=== PATIENT | female | born 1985 | race Caucasian/White ===

== ENCOUNTER 2025-01-14 14:08 | Emergency (ER) | payer SELFPAY ==
--- OUTSIDE RECORDS SUMMARY | 2025-01-14 14:17 | XMS_ITS | Continuity of Care Document ---
Author Organization [facility] Address [address] [place] [address] Phone Care Team Providers Care Supervisor Shuttle Fitting Name Role Phone CONV, [facility] Unavailable Unavailable Advance Directives Directive Yes / No Effective Date File Name No Information Encounters Encounter Description Practice Location Reason(s) For Visit Diagnoses Date Provider Providers Copied on Encounter [facility] /[facility], [address] [place] [address], [facility], tel:[phone] Z [facility] CONV No Information CONV [facility]. [address] [place] [address], [facility], . Family History Family Member Type Diagnosis Age At Onset No Information Immunizations Vaccine Date Status Comments HEP B VACCINE PED/ADOL administered Note: [place] ; Source: New Immunization Record HEP B VACCINE PED/ADOL administered Note: [place] ; Source: New Immunization Record HEP B VACCINE PED/ADOL administered [facility] e: New Immunization Record Payers Payer name Insurance type Covered democrat ID Authoriza tion(s) No Information Social History Type Description Quantity Date Captured Comments Sex Female Smoking Status No Information Chief Complaint And Reason For Visit No Information History Of Present Illness Encounter Date Complaint History Of Prese nt Illness No Information Instructions Date Instruction Additional Infor mation No Information Assessments Type Assessment Date No Information Patient Care Teams Name Effective Dates (start - stop) Status Members No Information
[2025-01-14 14:22] VITALS: BP 120/83; PULSE 92; RESP 16; TEMP 36.2; O2SAT 100
--- NOTE | 2025-01-14 14:34 | ED_ITS ---
HPI - Skin/Abscess/Foreign Bdy General Chief complaint: Skin/Abscess/Foreign Body Stated complaint: RT hip rash Time Seen by Provider: 01/14/25 14:39 Source: patient and RN notes reviewed Mode of arrival: ambulatory Limitations: no limitations History of Present Illness HPI narrative: 39-year-old female presents with concern for painful itchy rash on her left hip. She reports it has been there for 5 days. She reports she has tried at home made cream without relief. She reports she is feeling achy otherwise denies fever, chills, sweats. MD complaint: rash Related Data Allergies Allergy/AdvReac Type Severity Reaction Status Date / Time Latex, Natural Rubber Allergy Mild Rash Verified 01/14/25 14:23 pineapple Allergy Mild Swelling Verified 01/14/25 14:23 Review of Systems Review of Systems: CONSTITUTIONAL: Denies malaise, chills, sweats, or fever. EYES: Denies redness, or discharge. ENT: Denies rhinorrhea, congestion, swollen lips, swollen tongue CARDIOVASCULAR: Denies chest pain, palpitations, or edema. RESPIRATORY: Denies cough or dyspnea. GASTROINTESTINAL: Denies abdominal pain, nausea, vomiting SKIN: Reports painful, itchy rash to her right hip MUSCULOSKELETAL: Denies joint pain or myalgia. NEUROLOGIC: Denies headache. All systems reviewed & are unremarkable except as noted in HPI and below PMFSH Comments At time of signature, agree with nursing past medical, surgical, social and family history. There is no relevant family history pertinent to the presenting complaint Exam 2 Narrative: GENERAL: Well-appearing, well-nourished, and in no acute distress. HEAD: Normocephalic, atraumatic. EYES: PERRLA, conjunctivae clear, and EOMI. ENT: Mucous membranes moist. Oropharynx without edema, erythema or lesions. NECK: Supple. No lymphadenopathy CHEST: Clear to auscultation. No respiratory distress. HEART: Regular rate and rhythm. SKIN: Warm, dry. Zosteriform rash noted to patient's right hip NEURO: Alert and oriented x3. PSYCH: Normal mood and affect Course Course Emergency Course: Patient is aware of diagnosis, understands and agrees to treatment plan. Anticipatory guidance given. Patient agrees to follow-up as directed and is aware of reasons to seek care at the emergency department. Portions of this record may have been created with voice recognition software Level of Care: [facility] Visit Vital Signs Vital signs: Vital Signs Temperature 97.2 F L 01/14/25 14:22 Pulse Rate 92 01/14/25 14:22 Respiratory Rate 16 01/14/25 14:22 Blood Pressure 120/83 01/14/25 14:22 Pulse Oximetry 100 01/14/25 14:22 Oxygen Delivery Room Air 01/14/25 14:22 Temperature 97.2 F L 01/14/25 14:22 Pulse Rate 92 01/14/25 14:22 Respiratory Rate 16 01/14/25 14:22 Blood Pressure 120/83 01/14/25 14:22 Pulse Oximetry 100 01/14/25 14:22 Oxygen Delivery Room Air 01/14/25 14:22 Reviewed. MDM - Skin/Abscess/Foreign Bdy MDM Narrative Medical decision making narrative: Does not appear at this time to be erythema multiforme, bullous, SJS, TEN; no evidence at this time to suggest RMSF, endocarditis or Lyme disease; patient looks well, nontoxic and is tolerating oral intake; no neurologic signs or symptoms; no headache, photophobia or neck pain; afebrile; appropriate for initial outpatient treatment; discussed the importance of follow-up, patient agrees; question, viral exanthema, contact dermatitis, allergic dermatitis, eczema, urticaria, shingles. No soft palate or uvula edema, no tongue, lip edema or other mucosal involvement, no respiratory compromise, no stridor, no wheezing, no wheezing, no history of syncope, no hypotension, no nausea, vomiting, or diarrhea. Instructed patient to go to nearest ER immediately for any worsening symptoms including but not limited to: fever, spreading rash, pain, sore throat, headache, dizziness, chest pain, trouble breathing, or any symptoms concerning to the patient. Critical Care Time Critical Care Time Critical Care Time: No Discharge Plan Discharge Clinical Impression: Shingles Patient Disposition: Home Condition: Stable Instructions: Shingles (ED) Additional Instructions: Alternate Tylenol and Motrin for pain, body aches, fever. You may take 2 regular strength Tylenol every 4 hours, alternate with 3 regular strength Motrin every 6 hours so you are taking something every 2-3 hours. Apply topical pain medicine and take antiviral medicine as prescribed. Shingles pain can last weeks, sometimes months. If your pain persists after antiviral medication is complete please follow-up with your primary care provider for a long-term pain control plan. Follow-up with your doctor in the next 2 to 3 days. Go to the emergency room if you have any urgent concerns. Patient Language: Canadian Prescriptions: New lidocaine 5 % cream 1 applic topical TID PRN (Reason: pain) Qty: 30 0RF valacyclovir 1 gram tablet 1,000 mg PO TID 7 Days Qty: 21 0RF Follow-up/Referrals: PHYSICIAN,FREIGHT [employer]TER [Primary Care Provider] - Time of Disposition: 14:46
== END 2025-01-14 14:48 | disposition home or self-care (01) ==
PROVIDERS: Emergency Provider Nurse Practitioner
DX: B02.9 Zoster without complications (principal)
CPT/HCPCS: 99203; G0463

== ENCOUNTER → 2025-05-10 12:11 | Outpatient (CLI) | payer OTHER, SELFPAY ==
--- NOTE | ~2025-05-10 | XR_ITS ---
XR lumbar spine 2-3V Indication: Low back pain with sciatica Comparison: None Findings: The vertebral heights are intact. No fracture or subluxation. The disc heights are intact. Soft tissues unremarkable Impression: No acute abnormality. Reviewed, dictated and finalized at location P. GER ANALYTICAL Impression: No acute abnormality.
--- OUTSIDE RECORDS SUMMARY | 2025-05-10 12:18 | XMS_ITS | Continuity of Care Document ---
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 Plan of Treatment Reminders Order Date Submit Date Provider Last Modified By Organization Details Last Modified Time Details Appointments Screening Mammogram 2025 11:40A M [id number] MO Not available Not available Not available ANNUAL- EST 15 2025 12:15P M OPAL JEFFERSON WHNP Not available Not available Not available Lab HPV DNA, high-risk - Reflex to genotypin g if HPV Detected 2024 [facility] ([facility]), [address] , [address], [place], [address], 04/18/2025 13:38:12 pap, LB 2024 025 [facility] ([facility]), [address] , [address], [place], [address], 04/18/2025 13:38:12 Referral None recorded. Procedures None recorded. Surgeries None recorded. Imaging None recorded. Medication Orders None recorded. Patient TargetsNo targets recorded. Patient InstructionsNo instructions recorded. Reason for Referral None Reported. Results Created Date Observation Date Name Description Value Unit Range Abnormal Flag Note LastModifiedBy Organization Detail LastModifiedTime 04/15/2004/18/2025 PAP TEST THIN PREP Pap test thin prep Negati ve for Intrae pithel ial Lesion or Malign remy normal ACCES JONO #: [id number] Sour e: Cervi vale/E ndoce rvica l LMP: 04/01 Date Taken : 04/15 Speci men Type: ThinP rep Vial Date Repor pawel: 04/18 Clini vale Data: Last Pap: nl (10/01) Cytot ech: Ashwin Leonard r, CT( CP) Sonu Ch M.D. elect marvin boyce autumn d 04/18 at 10:36 AM Speci men Adequ acy: Satis facto ry for evalu ation Endoc ervic al/tr ansfo rmati on zone compo nent prese nt Gener al Categ oriza tion: NEGAT JORDANA FOR INTRA EPITH ELIAL LESIO N OR MALIG WADE Inter preta tion/ Resul t: React jordana cellu lar felipe es This speci men has been maura zed by the ThinP rep Imagi ng Syste m, an inter activ e compu ter syste m which kevin ts the lab in the scree dustin of ThinP rep Pap Test slide sMilana fitch imagi ng, the slide was revie wed by a Cytot echno logis t and/o r Patho logis t. Cervi vale cytol ogy is a scree dustin test prima rily for squam ous cance rs and precu rsors and has assoc iated false -nega tive and false -posi tive resul ts. New techn ologi es such as liqui d-bas ed prepa ratio ns may decre ase but will not elimi vincent all false -nega tive resul ts. Regul ar sampl ing and follo w-up of unexp emily d clini vale signs and sympt oms are recom huseyin d to minim ize false negat jordana resul ts. D N A A S S A Y S R E P O R T TEST NAME RESUL TS ----- ---- ----- -- HPV High Risk Scree n (TMA) ThinP rep Vial The human papil lomav irus (HPV) High Risk Amaury montoya is an FDA-a pprov ed in-vi tro ampli fied nucle ic acid test for the quali tativ e detec tion of E6/E7 viral mRNA. Resul ts shoul d be corre lated with patie nt prese ntati on, histo ry, cervi vale cytol ogy and other clini vale and labor atory findi ngs. See https ://WiTricity/s ites/ defau lt/fi -0 AW- 92334 _002_ 01.pd f for furth er infor matio n. Test perfo rmed by [facility], [address], [place] [address] , Fadia Martinez ra, DO, Labor atory Dire tor, CLIA# [id number] HPV High Risk *HPV NOT DETEC PAWEL (TYPE S 16, 18, 31, 33, 35, 39, 45, 51, 52, 56, 58, 59, 66, 68) *HPV: The human papil lomav irus (HPV) High Risk Amaury montoya is an FDA-a pprov ed in-vi tro ampli fied nucle ic acid test for the quali tativ e detec tion of E6/E7 viral mRNA. Resul carlitos luna d be corre lated with patie nt prese ntati on, histo ry, cervi vale cytol ogy and other clini vale and labor atory findi ngs. See https ://WiTricity/s ites/ defau lt/fi -0 - 77065 _002_ 01.pd f for furth er infor matio n. Test perfo rmed by [facility], [address], [place] [address] , Fadia Martinez ra, DO, Labor atory Direc tor, CLIA# [id number] End of Repor t Techn ical servi pritesh provi ded by [facility], [facility], [address] [place] [address] Demetris wynne MD, [facility]. Case revie wed and diagn osis rende red at [facility], d/b/a [facility], [address], [place] [address] Sonu Ch MD, [facility]. CONFI DENTI AL Not Available [facility] ([facility]) [address], [place], [address], 04/18/2025 13:38:12 04/15/20 25 04/16/2025 HPV HIGH RISK SCREE N (TMA) HPV high risk NOT DETECT ED normal Not Available [facility]) [facility], [place], [address], 04/18/2025 13:38:12 04/15/20 25 04/15/2025 MAMMO , scree dustin, tomos ynthe sis, bilat eral No observ ation record ed. KYAW [id number] t Mammo_southda [facility] [address] [facility], [place], [address], 04/16/2025 10:11:20 04/15/2004/15/2025 lay lette r No observ ation record ed. KYAW [id number] t Mammo_[facility]da [facility] [address], [place], [address], 04/19/2025 16:02:29 Result Notes None recorded. Problems Name Problem SNOMED Code Status Onset Date Resolution Date Notes Provider Name and Address Organization Details Recorded Time Acquired hypothyroidism 309866048 Active 2024 Patricia Clement [facility] 13:42:09 Bipolar I disorder 185804119 Active 2024 Patricia Urbano null, [place] - [place] [facility] 13:42:19 Asthma - currently active 147611347 Active 2024 Patricia Urbano null, [place] - [facility] 13:42:29 Problem Notes None recorded. Procedures Surgical History Date Name Laterality Status Provider Name and Address Organization Details Recorded Time 5 Date of Last Mammogram completed Patricia Clement [facility] 04/15/2025 13:43:12 2 Date of Last Pap Smear completed Unique Barahona MD [address], [place], [address], [facility] 10/08/2021 08:48:49 2 I&D completed Symone Leon DO [address], [place], [address], [facility] 09/03/2021 21:22:08 6 Tubal Ligation completed Unique Barahona MD [address], [place], [address], [facility] 10/01/2021 17:49:52 Elbow arthroscopy completed Unique Barahona MD [address], [place], [address], [facility] 07/29/2020 11:44:40 Imaging Results None recorded. Procedure Notes None recorded. Medical Equipment None Reported. Allergies Allergen ID Allergen Name Allergen Category Reaction Reaction Severity Criticality Documentation Date Start Date Code Code System Note Provider Name and Address Organization Details Recorded Time latex environme nt,medica tion Not available Not available Not available 07/29/2020 82291 91 RxNorm Janine Sarah null, [place] - [place] [facility] 11:21:42 72123 cat dander environme nt Not available Not available Not available 07/29/2020 Janinemariano Sarah [facility] [place] [facility] 11:21:42 86249 house dust allergeni c extract environme nt,medica tion Not available Not available Not available 07/29/2020 24486 9 RxNorm Janine Sarah [facility] [place] 11:21:42 Medications Name Sig Start Date Stop Date Status Note LastModified by Organization Details LastModified Time cyclobenzap rine 10 mg tablet TAKE 1 TABLET BY MOUTH AT BEDTIME FOR 10 DAYS 09/03 completed Not Available Not Available Not Available latanoprost 0.005 % eye drops 09/03 completed Not Available Not Available Not Available azithromyci n 250 mg tablet Take 2 tablets (500 mg total) by mouth daily for 1 day then take 1 tablet (250 mg total) daily for 4 days 09/03 completed Not Available Not Available Not Available hydrocodone 5 mg-acetamin ophen 325 mg tablet TAKE ONE TABLET BY MOUTH THREE TIMES DAILY NEEDED for pain 10/01 completed Not Available Not Available Not Available metronidazo le 500 mg tablet TAKE ONE TABLET BY MOUTH TWICE DAILY FOR 7 DAYS 10/01 completed Not Available Not Available Not Available lamotrigine 25 mg tablet Take 1 tablet by mouth nightly 09/03 completed Not Available Not Available Not Available ziprasidone 20 mg capsule TAKE 1 CAPSULE BY MOUTH DAILY 04/15 completed Not Available Not Available Not Available benzonatate 100 mg capsule TAKE ONE CAPSULE BY MOUTH THREE TIMES DAILY NEEDED FOR COUGH 09/03 completed Not Available Not Available Not Available levothyroxi ne 50 mcg tablet Take 1 tablet (50 mcg total) by mouth before breakfast . 04/15 completed Not Available Not Available Not Available buspirone 10 mg tablet Take 1 tablet BY MOUTH DAILY 04/15 completed Not Available Not Available Not Available Advair Diskus 250 mcg-50 mcg/dose powder for inhalation Inhale 1 puff into the lungs every 12 hours Gargle after use 10/01 completed Not Available Not Available Not Available hydrocodone -homatropin e 5 mg-1.5 mg/5 mL oral solution TAKE 5 ML (1 TEASPOONF UL) BY MOUTH 3 TIMES DAILY NEEDED. MAY CAUSE DROWSINES S 09/03 completed Not Available Not Available Not Available sertraline 25 mg tablet take one tablet by mouth daily 09/03 completed Not Available Not Available Not Available Adderall XR 10 mg capsule,ext ended release TAKE ONE CAPSULE BY MOUTH ONE TIME DAILY 04/15 completed Not Available Not Available Not Available methylpredn isolone 4 mg tablets in a dose pack take as directed 09/03 completed Not Available Not Available Not Available albuterol sulfate HFA 90 mcg/actuati on aerosol inhaler INHALE 1 PUFF INTO THE LUNGS EVERY 6 HOURS NEEDED FOR WHEEZING 04/15 completed Not Available Not Available Not Available ondansetron 4 mg disintegrat ing tablet DISSOLVE ONE TABLET IN MOUTH EVERY EIGHT HOURS NEEDED FOR NAUSEA 04/15 completed Not Available Not Available Not Available naproxen 500 mg tablet TAKE 1 TABLET BY MOUTH TWICE DAILY WITH MEALS 07/29 completed Not Available Not Available Not Available azithromyci n 500 mg tablet Take 2 tablets every day by oral route for 1 day. 10/01 completed Not Available Not Available Not Available escitalopra m 10 mg tablet TAKE ONE TABLET BY MOUTH ONE TIME DAILY 10/01 completed Not Available Not Available Not Available aripiprazol e 10 mg tablet TAKE ONE TABLET BY MOUTH ONE TIME DAILY 09/03 completed Not Available Not Available Not Available aripiprazol e 5 mg tablet Take 1 tablet by mouth daily. take along with 2mg equaling 7mg 04/15 completed Not Available Not Available Not Available escitalopra m 5 mg tablet TAKE ONE TABLET BY MOUTH ONE TIME DAILY 10/01 completed Not Available Not Available Not Available levothyroxi ne 50mcg 09/03 completed Not Available Not Available Not Available aripiprazol e 2 mg tablet TAKE 1 TABLET BY MOUTH DAILY IN THE EVENING TAKE ALONG WITH 5 MG = 7 MG 04/15 completed Not Available Not Available Not Available Vraylar 1.5 mg capsule TAKE ONE CAPSULE BY MOUTH ONE TIME DAILY 04/15 completed Not Available Not Available Not Available Vraylar 3 mg capsule Take 1 capsule orally daily 04/15 completed Not Available Not Available Not Available Vitals Date Recorded Body height Body mass index (BMI) Body weight Systolic And Diastolic Provider Name and Address Organization Details Last Updated DateTime 04/15/2025 160.02 cm 26.7 kg/m2 47745.45 g 110/68 mm[Hg] Patricia Clemetn [facility] [place] [facility] 04/15/2025 13:44:56 Social History Question Answer Notes LastModified by Organization Details LastModified Time Tobacco Smoking Status Never Smoker MARIAH KARISHMA [facility] [place] [facility] 07/28/2020 10:20:33 Do You Have An Advance Directive? No Information not available 07/27/2022 If You Are , What Was Your Level Of Alcohol Consumption Prior To ? None Information not available 04/15/2025 What Is Your Level Of Caffeine Consumption? Occasional Information not available 04/15/2025 What Type Of Diet Are You Following? REGULAR Not Eating A Lot, Feeling Super Depressed So Plans To See Psych 2020, Depression Improving 2021 With Psychiatrist Information not available 10/01/2021 Which Illicit Or Recreational Drugs Have You Used? Marijuana [email or web address] Information not available 10/01/2021 Have There Been Any Changes To Your Family Or Social Situation? Yes Information not available 07/27/2022 Live Alone Or With Others? 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 07/27/2022 Information not available 07/27/2022 How Many Children Do You Have? 1 Information not available 07/27/2022 Do You Use Protection During Sex? No Information not available 07/27/2022 What Is Your Relationship Status? 2021 - From But Has Boyfriend Information not available 07/27/2022 Do You Use Your Seat Belt Or Car Seat Routinely? Yes Information not available 07/27/2022 Are You Sexually Active? Yes Information not available 07/27/2022 Are You Passively Exposed To Smoke? No Information not available 07/27/2022 How Much Tobacco Do You Smoke? No [email or web address] Information not available 07/29/2020 Sex: Female Functional Status Question Answer Note LastModified by Organizat ion Details LastModified Time Do you use any illicit or recreational drugs? Yes Information not available 07/27/2022 Do you or have you ever used any other forms of tobacco or nicotine? No Information not available 07/27/2022 What is your level of alcohol consumption? None [email or web address] Information not available 04/15/2025 Do you or have you ever used smokeless tobacco? Never used smokeless tobacco [email or web address] Information not available 07/29/2020 Are you currently employed? 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 Never used electronic cigarettes [email or web address] Information not available 07/28/2020 What is your exercise level? Moderate started going to the gym 2020 Information not available 07/27/2022 Mental Status None recorded. Family History Relationship Description Onset Age of this Age Resolved Age Notes LastModified by Organization Details LastModified Time Maternal Grandmother Mental disorder Not available 02/2021 11:21:47 Mother Depressive disorder [email or web address] Not available 02/2021 11:21:47 Mother Mental disorder [email or web address] Not available 02/2021 11:21:47 Mother Hyperthyroid ism [email or web address] Not available 02/2021 11:21:47 Mother Anxiety disorder [email or web address] Not available 02/2021 11:21:47 Mother Asthma Thinks it's her mom but isn't sure becaus e she was adopte d. [email or web address] Not available 07/29/2020 11:26:23 Brother Depressive disorder [email or web address] Not available 02/2021 11:21:47 Brother Mental disorder [email or web address] Not available 02/2021 11:21:47 Brother Anxiety disorder [email or web address] Not available 02/2021 11:21:47 Sister Depressive disorder [email or web address] Not available 02/2021 11:21:47 Sister Mental disorder [email or web address] Not available 02/2021 11:21:47 Sister Anxiety disorder [email or web address] Not available 02/2021 11:21:47 Son Anxiety disorder [email or web address] Not available 2024 13:33:33 Son Depressive disorder [email or web address] Not available 2024 13:33:33 Son Asthma [email or web address] Not available 13:33:33 Notes:adopted Medical History Condition Response Psych- Anxiety Disorder Y Psych- Bipolar Disease Y Endocrinology- Hyperthyroidism Y Endocrinology- Thyroid Problems Y Pulmonary- Asthma Y Gynecological History Statement/Question Response History of Fibroids N Flow Moderate Date of Last Mammogram 04/15/2025 Date of LMP 04/01/2025 Current Control Method: Tubal Liga tion N Cologuard Testing N History of Recurrent Ovarian Cysts N HPV Vaccine Not Completed Date of Last HPV Test 10/01/2021 Condoms 13 Abnormal Pap N History of PCOS N History of Infertility N History of Cervical Dysplasia N History of Vulvar Dysplasia N Duration of Flow (days) 7 10/01/2021 Current Control Method Tubal Ligat ion Age at Menarche 11 Age at First Child 20 History of Endometriosis N Frequency of Cycle (Q days) Every month Sexually Active? Y History of Abnormal PAP N History of Dysmenorrhea N Menses Monthly Y Date of Last Pap Smear 10/01/2021 Sexual Problems? N LMP Approximate History of Sexually Transmitted Infectio n N N Obstetrics History GPAL:G 1 P 1 0 0 1 Type Value Multiple Births 0 Full Term 1 Induced 0 Spontaneous 0 Premature 0 Living 1 Ectopics 0 Total 1 Immunizations Vaccine Type Date Status Note Provider Nam e and Address Organization Details Recorded Time Influenza, split virus, quadrivalent, preservative 0 completed Unique Barahona MD [address], [place], [address], [facility] 07/29/2020 11:39:14 Influenza, split virus, quadrivalent, preservative 8 completed Unique Barahona MD [address], [place], [address], [facility] 07/29/2020 11:39:14 Past Encounters Encounter ID Performer Location Encounter Start Date Encounter Closed Date Diagnosis/Indication Diagnosis SNOMED-CT Code Diagnosis ICD10 Code Diagnosis IMO Codes Diagnosis Note [id number] TESFAYE MEDEIROS MD [id number] [address] [place] [address] 04/15/2025 13:27:25 04/15/2025 14:13:06 Screening for malignant neoplasm of cervix 853179165 Z12.4 Human kayla lloma virus screening 368407091 Z11.51 Female gen shelia finding 108074199 Z01.419 26768 Health Concerns Section Related Observation LastModified by Organization Detai ls LastModified Time None Recorded Concern Status LastModified by Organization Details LastModified Time None Recorded Payers Encounter Date Sequence Insurance Name Policy Number Policy Ontiveros Covered Member ID Ontiveros Member ID Guarantor Name 04/15/2025 1 [place] [facility] Astrid Álvarez [id number] Astrid Álvarez Notes Date Note Type Note Provider Name and Address Organization Details Recorded Time 04/15/2025 text/html Annual [employer] HEL[employer] - McwhcReported by PatientHistoryFor history, patient reportsno gynecologic complaintsandno change in interval history.Genitourinary symptomsFor menstrual cycle, patient reportsnormal menses. For urinary symptoms, patient reportsno hematuria. For vulvar complaints, patient reportsnone. For vaginal complaints, patient reportsnone.Breast symptomsFor breast, patient reportsno breast pain,no breast lump, andno nipple discharge.Endocrine symptomsFor sexual complaints, patient reportsno sexual complaints.Preventativ e measuresFor preventive measures, patient reportsencourage self breast examination,encourage regular exercise,encourage no tobacco use, andencourage regular mammograms starting age 40.Has appt next week with new PCP.Just got back on insurance. Denies SI/HI. States just depressed because I haven't seen my kids. Feels like she is managing her mental health at this time. States is supportive.ROS as noted in the HPI OPAL JEFFERSON [facility] [address], [place], [address], [facility] 04/15/2025 14:08:28 OBGyn Episode No OBEpisode recorded.
--- OUTSIDE RECORDS SUMMARY | 2025-05-10 12:18 | XMS_ITS | Data Portability ---
Author Organization [facility], ADMIN Address [address] [facility] [address] [place] [address] Care Team Providers Care Lens Inserter Name Role Phone DANIELA ALVAREZ Primary Care Provider Assessment Encounter Date Assessment Date Assessment LastModified by Organization Details LastModified Time 10/01/2021 10/01/2021 Yrly. Pap due. STD testing desired. Her son is trans and is suffering from depression but doing ok. She will bring him for a visit with me soon to address abnormal bleeding. Not available 10/01/2021 18:25:57 07/27/2022 07/27/2022 STD testing - will also send urine given sxs of urgency, frequency. Not available 07/28/2022 06:59:06 Plan of Treatment Reminders Order Date Submit Date Provider Last Modified By Organization Details Last Modified Time Details Appointments Screening Mammogram 20 2025 11:40A M [id number] MO Not available Not available Not available ANNUAL- EST 15 2025 12:15P M OPAL JEFFERSON WHONEL Not available Not available Not available Lab HPV DNA, high-risk - Reflex to genotypin g if HPV Detected 2024 025 [place] [facility]), [address] , [address], [place], [address], 04/18/2025 13:38:12 pap, LB 2024 025 [facility] ([facility]), [address], [address], [place], [address], 04/18/2025 13:38:12 urinalysi s, dipstick 2022 023 [facility] [place], [address], [address], [place], [address], 07/27/2022 19:36:03 culture, urine 2022 023 [facility] ([place]), [address] [place], [address], 07/29/2022 03:06:22 HBsAg (hepatiti s B surface Ag), EIA, serum 2022 023 [facility] ([place]), [address] [place], [address], 07/28/2022 14:08:37 HIV 1 + 2, meaningfu l use set 2022 023 [facility] ([place]), [address] [place], [address], 07/28/2022 14:08:36 treponema pallidum IgG + IgM Ab, QL, IA, serum 2022 023 [facility] ([place]), [address] [place], [address], 07/28/2022 14:08:36 hepatitis C Ab, signal-to -cutoff, serum or plasma 2022 023 [facility] ([place]), [address] [place], [address], 07/28/2022 14:08:35 vaginal pathogens panel, WYATT+probe , vaginal fluid 2022 023 [facility] ([place]), [address] [place], [address], 07/29/2022 03:06:23 pap, IG + HPV 2021 022 [facility] ([place]), [address] [place], [address], 10/07/2021 14:08:34 HBsAg (hepatiti s B surface Ag), EIA, serum 2021 022 [facility] ([place] [address] [place], [address], 10/03/2021 03:06:35 CT + NG RNA, PCR, unspecifi ed specimen 2021 022 [facility] ([place] [address] [place], [address], 10/03/2021 03:06:33 hepatitis C Ab, qual, IA, serum or plasma [address] [facility]), [address] [place], [address], 10/03/2021 03:06:35 HIV 1 + 2, meaningfu l use set 2021 022 [facility] ([place] [address] [place], [address], 10/03/2021 03:06:34 treponema pallidum IgG + IgM Ab, QL, IA, serum 2021 022 [facility] ([place] [address] [place], [address], 10/03/2021 03:06:34 bacterial vaginosis + vaginitis panel, vaginal 2021 022 [facility] ([place] [address] [place], [address], 09/08/2021 07:06:48 sexually transmitt ed pathogens panel, WYATT+probe , unspecifi ed specimen 2021 022 [id number] [facility] ([place]), [address] [place], [address], 07/07/2022 03:37:36 prolactin , serum 2020 021 [place] [facility] ([place]), [address] [place], [address], 02/25/2021 08:09:21 TSH, ultra-sen sitive, serum 2020 021 [place] [facility] ([place]), [address] [place], [address], 02/25/2021 08:09:21 Referral None recorded. Procedures None recorded. Surgeries None recorded. Imaging None recorded. Medication Orders None recorded. Patient TargetsNo targets recorded. Patient Instructions Encounter Date Encounter Id Patient Instructions Last Modified By Organization Details Last Modified Time 09/03/2021 [id number] . [email or web address] Not available 09/03 21:26:12 10/01/2021 [id number] specimen collection & handling* Not available 10/01/2021 18:06:00 Reason for Referral None Reported. Results Created Date Observation Date Name Description Value Unit Range Abnormal Flag Note LastModifiedBy Organization Detail LastModifiedTime 02/25/2002/25/2021 PROLA CTIN prolactin 15.5 NG/mL 4.8-23 .3 Not Available [facility] ([facility]) [address] [facility], [place], [address], 02/25/2021 08:09:21 02/25/20 21 02/25/2021 TSH RFX ON ABNOR MAL TO FREE T4 TSH 3.960 uIU/m L 0.450- 4.500 Not Available [facility] ([facility]) [address] [facility], [place], [address], 02/25/2021 08:09:21 09/04/19 22 09/06/2021 NUSWA B VG, RAYMOND DA 6SP atopobium vaginae High - 2 score abnormal Not Available [facility] ([facility]) [address] [facility], [place], [address], 09/08/2021 07:06:48 09/04/19 22 09/06/2021 NUSWA B VG, RAYMOND DA 6SP bvab 2 High - 2 score abnormal Not Available [facility] ([facility]) [address] [facility] [facility], [place], [address], 09/08/2021 07:06:48 09/04/19 22 09/06/2021 NUSWA B VG, RAYMOND DA 6SP megasphaera 1 High - 2 score abnormal Calcu late total score by azam g the 3 indiv idual bacte rial vagin osis (BV) marke r score s toget her. Total score is inter prete d as follo ws: Total score 0-1: Indic ates the absen ce of BV. Total score 2: Indet ermin ate for BV. Addit ional clini avle data shoul d be evalu ated to estab shama a diagn osis. Total score 3-6: Indic ates the prese nce of BV. This test was devel oped and its perfo rmanc e deya cteri stics deter mined by [facility]. It has not been clear ed or appro kevin by the Food and Drug Admin istra tion. Not Available [facility] ([facility]) [address] [facility] [facility], [place], [address], 09/08/2021 07:06:48 09/04/19 22 09/06/2021 NUSWA B VG, RAYMOND DA 6SP briana albicans, WAYTT Negati ve negati ve Not Available [facility] ([facility]) [address] [facility], [place], [address], 09/08/2021 07:06:48 09/04/19 22 09/06/2021 NUSWA B VG, RAYMOND DA 6SP briana glabrata, WYATT Negati ve negati ve Not Available [facility] ([facility]) [address] [place], [address], 09/08/2021 07:06:48 09/04/1909/07/2021 NUSWA B VG, RAYMOND DA 6SP C parapsilosis /tropicalis Negati ve negati ve This assay does not diffe renti ate C. tropi calis and C. parap katerine is. Not Available [facility] ([facility]) [address] [place], [address], 09/08/2021 07:06:48 09/04/19 22 09/07/2021 NUSWA B VG, RAYMOND DA 6SP briana lusitaniae, WYATT Negati ve negati ve Not Available [facility] ([facility]) [address] [place], [address], 09/08/2021 07:06:48 09/04/1909/07/2021 NUSWA B VG, RAYMOND DA 6SP briana krusei, WYATT Negati ve negati ve Not Available [facility] ([facility]) [address] [place], [address], 09/08/2021 07:06:48 09/04/1909/07/2021 NUA B VG, RAYMOND DA 6SP trich vag by WYATT Negati ve negati ve Not Available [facility] ([facility]) [address] [place], [address], 09/08/2021 07:06:48 09/04/19 22 09/08/2021 GENIT AL MYCOP LASMA S WYATT, SWAB mycoplasma genitalium WYATT Negati ve negati ve Not Available [facility] ([facility]) [address] [place], [address], 09/08/2021 07:06:49 09/04/19 22 09/08/2021 GENIT AL MYCOP LASMA S WYATT, SWAB mycoplasma hominis WYATT Positi ve negati ve abnormal Not Available [facility] ([facility]) [address] [place], [address], 09/08/2021 07:06:49 09/04/1909/08/2021 GENIT AL MYCOP LASMA S WYATT, SWAB ureaplasma spp WYATT Positi ve negati ve abnormal Not Available [facility] ([facility]) [address] [facility], [place], [address], 09/08/2021 07:06:49 10/02/1910/02/2021 CHLAM YDIA/ GC AMPLI FICAT ION chlamydia trachomatis, WYATT Negati ve negati ve Not Available [facility] ([facility]) [address] [facility], [place], [address], 10/03/2021 03:06:33 10/02/1910/02/2021 CHLAM YDIA/ GC AMPLI FICAT ION neisseria gonorrhoeae, WYATT Negati ve negati ve Not Available [facility] ([facility]) [address] [facility], [place], [address], 10/03/2021 03:06:33 10/02/1910/02/2021 TREPO NEMA PALLI DUM ANTIB ODIES treponema pallidum antibodies Non Reacti ve non reacti ve Not Available [facility] ([facility]) [address] [facility], [place], [address], 10/03/2021 03:06:34 10/02/1910/02/2021 HIV AB/P2 4 AG WITH REFLE X HIV Ab/P24 Ag screen Non Reacti ve non reacti ve HIV Negat jordana HIV-1 /HIV- 2 antib odies and HIV-1 p24 antig en were NOT detec berkley. There is no labor atory evide nce of HIV infec tion. Not Available [facility] ([facility]) [address] [facility], [place], [address], 10/03/2021 03:06:34 10/02/19 22 10/02/2021 HCV ANTIB SRINIVAS REFLE X TO WYATT HCV Ab 0.1 s/co_ ratio 0.0-0. 9 Not Available [facility] ([facility]) [address] [facility], [place], [address], 10/03/2021 03:06:34 10/02/19 22 10/02/2021 HCV ANTIB SRINIVAS REFLE X TO WYATT interpretati on: Commen t Negat jordana Not infec berkley with HCV, unles s recen t infec tion is suspe cted or other evide nce exist s to indic ate HCV infec tion. Eff ectiv e October 19, 2021 HCV Antib srinivas refle x to WYATT will be made non-o rdera ble. This will affec t any [place] [id number] HCV Antib srinivas refle x to WYATT. [facility] offer s order code [id number] HCV Antib srinivas RFX to Quant PCR as an alter nativ e. Not Available [facility] ([facility]) [address] [facility], [place], [address], 10/03/2021 03:06:34 10/02/19 22 10/02/2021 HBSAG SCREE N HBsAg screen Negati ve negati ve Not Available [facility] ([facility]) [address] [facility], [place], [address], 10/03/2021 03:06:35 10/02/19 22 10/03/2021 IGP, APT HPV,R FX 16/18 ,45 HPV aptima Negati ve negati ve This nucle ic acid ampli ficat ion test detec ts fourt een high- risk HPV types (16,1 8,31, 33,35 ,39,4 5,51, 52,56 ,58,5 9,66, 68) witho ut diffe renti ation . Not Available [facility] ([facility]) [address] [facility], [place], [address], 10/07/2021 14:08:34 10/02/19 22 10/07/2021 IGP, APT HPV,R FX 16/18 ,45 diagnosis: Esteban gann NEGHORACIO JORDANA FOR INTRA EPITH ELIAL BEREKET N OR ABIGAIL OLVERA . Not Available [facility] ([facility]) [address] [place], [address], 10/07/2021 14:08:34 10/02/19 22 10/07/2021 IGP, APT HPV,R FX 16/18 ,45 specimen adequacy: Esteban t Satis facto ry for evalu ation . Endoc ervic al and/o r squam ous metap lasti c cells (endo cervi vale compo nent) are prese nt. Not Available [facility] ([facility]) [address] [place], [address], 10/07/2021 14:08:34 10/02/19 22 10/07/2021 IGP, APT HPV,R FX 16/18 ,45 clinician provided ICD10: Esteban gann Z01.4 19 Z11.5 1 Not Available [facility] ([facility]) [address] [facility], [place], [address], 10/07/2021 14:08:34 10/02/19 22 10/07/2021 IGP, APT HPV,R FX 16/18 ,45 performed by: Esteban grubbs, Cytot tonny gann (ASCP ) Not Available [facility] ([facility]) [address] [place], [address], 10/07/2021 14:08:34 10/02/19 22 10/07/2021 IGP, APT HPV,R FX 16/18 ,45 . . Not Available [facility] ([facility]) [address] [place], [address], 10/07/2021 14:08:34 10/02/19 22 10/07/2021 IGP, APT HPV,R FX 16/18 ,45 note: Esteban gann The Pap smear is a scree dustin test kate newton to aid in the detec tion of jnoy ligna nt and malig nant condi tions of the uteri ne cervi x. It is not a diagn ostic proce dure and shoul d not be used as the sole means of detec ting cervi vale cance r. Both false -posi tive and false -nega tive repor ts do occur . Not Available [facility] ([facility]) [address] [place], [address], 10/07/2021 14:08:34 10/02/19 22 10/07/2021 IGP, APT HPV,R FX 16/18 ,45 test methodology: Commen t This liqui d based ThinP rep(R ) pap test was amaury newton with the use of an image guide mary cotton Not Available [facility] ([facility]) [address] [facility], [place], [address], 10/07/2021 14:08:34 07/27/19 23 07/28/2022 HCV ANTIB SRINIVAS RFX TO QUANT PCR HCV Ab 0.1 s/co_ ratio 0.0-0. 9 Not Available [facility] ([facility]) [address] [place], [address], 07/28/2022 14:08:35 07/27/19 23 07/28/2022 HCV ANTIB SRINIVAS RFX TO QUANT PCR interpretati on: Commen t Negat jordana Not infec berkley with HCV, unles s recen t infec tion is suspe cted or other evide nce exist s to indic ate HCV infec tion. Not Available [facility] ([facility]) [address] [place], [address], 07/28/2022 14:08:35 07/27/19 23 07/28/2022 TREPO NEMA PALLI DUM ANTIB ODIES treponema pallidum antibodies Non Reacti ve non reacti ve Not Available [facility] ([facility]) [address] [place], [address], 07/28/2022 14:08:35 07/27/19 23 07/28/2022 HIV AB/P2 4 AG WITH REFLE X HIV Ab/P24 Ag screen Non Reacti ve non reacti ve HIV Negat jordana HIV-1 /HIV- 2 antib odies and HIV-1 p24 antig en were NOT detec berkley. There is no labor atory evide nce of HIV infec tion. Not Available [facility] ([facility]) [address] [facility], [place], [address], 07/28/2022 14:08:36 07/27/19 23 07/28/2022 HBSAG SCREE N HBsAg screen Negati ve negati ve Not Available [facility] ([facility]) [address] [facility], [place], [address], 07/28/2022 14:08:37 07/27/19 23 07/29/2022 URINE CULTU RE, ROUTI NE urine culture, routine Final report Not Available [facility] ([facility]) [address] [facility], [place], [address], 07/29/2022 03:06:22 07/27/1907/29/2022 URINE CULTU RE, ROUTI NE result 1 Commen t Cultu re shows less than 10,00 0 colon y formi ng units of bacte nahun per mala liter of urine . This colon y count is not gener ally consi dered to be clini karen signi fican t. Not Available [facility] ([facility]) [address] [facility], [place], [address], 07/29/2022 03:06:22 07/27/1907/28/2022 NUSWA B VAGIN ITIS PLUS (VG+) atopobium vaginae Low - 0 score Not Available [facility] ([facility]) [address] [place], [address], 07/29/2022 03:06:23 07/27/19 23 07/28/2022 NUSWA B VAGIN ITIS PLUS (VG+) bvab 2 Low - 0 score Not Available [facility] ([facility]) [address] [place], [address], 07/29/2022 03:06:23 07/27/19 23 07/28/2022 NUA B VAGIN ITIS PLUS (VG+) megasphaera 1 Low - 0 score Calcu late total score by azam wynne the 3 indiv idual bacte rial vagin osis (BV) marke r score s toget her. Total score is inter prete d as follo ws: Total score 0-1: Indic ates the absen ce of BV. Total score 2: Indet ermin ate for BV. Addit ional clini vale data shoul d be evalu ated to estab shama a diagn osis. Total score 3-6: Indic ates the prese nce of BV. This test was devel oped and its perfo rmanc e deya cteri stics deter mined by [facility]. It has not been clear ed or appro kevin by the Food and Drug Admin istra tion. Not Available [facility] ([facility]) [address] [place], [address], 07/29/2022 03:06:23 07/27/1907/28/2022 [facility] (VG+) briana albicans, WYATT Negati ve negati ve Not Available [facility] ([facility]) [address] [place], [address], 07/29/2022 03:06:23 07/27/19 23 07/28/2022 NUA B VAGIN ITIS PLUS (VG+) briana glabrata, WYATT Negati ve negati ve Not Available [facility] ([facility]) [address] [place], [address], 07/29/2022 03:06:23 07/27/19 23 07/28/2022 NUA B VAGIN ITIS PLUS (VG+) trich vag by WYATT Negati ve negati ve Not Available [facility] ([facility]) [address] [facility], [place], [address], 07/29/2022 03:06:23 07/27/19 23 07/28/2022 NUA B VAGIN ITIS PLUS (VG+) chlamydia trachomatis, WYATT Negati ve negati ve Not Available [facility] ([facility]) [address] [facility], [place], [address], 07/29/2022 03:06:23 07/27/19 23 07/28/2022 NUSWA B VAGIN ITIS PLUS (VG+) neisseria gonorrhoeae, WYATT Negati ve negati ve Not Available [facility] ([facility]) [address] [facility], [place], [address], 07/29/2022 03:06:23 07/27/19 23 07/27/2022 urina lysis , dipst ick glucose neg neg - 2+ Not Available [address], [place], [address], 07/27/2022 18:17:56 07/27/1907/27/2022 urina lysis , dipst ick bilirubin neg neg - pos Not Available [address], [place], [address], 07/27/2022 18:17:56 07/27/19 23 07/27/2022 urina lysis , dipst ick ketones neg neg - lar Not Available [address], [place], [address], 07/27/2022 18:17:56 07/27/19 23 07/27/2022 urina lysis , dipst ick specific gravity 1.005 1.005- 1.030 Not Available [address], [place], [address], 07/27/2022 18:17:56 07/27/19 23 07/27/2022 urina lysis , dipst ick blood trace neg - lar Not Available [facility] [place] [address] [facility] [address], [place], [address], 07/27/2022 18:17:56 07/27/19 23 07/27/2022 urina lysis , dipst ick pH 5 5.0-7. 0 Not Available [facility] [place] [address] [facility] [address], [place], [address], 07/27/2022 18:17:56 07/27/19 23 07/27/2022 urina lysis , dipst ick protein trace neg - 4+ Not Available [facility] [place] [address] [facility] [address], [place], [address], 07/27/2022 18:17:56 07/27/19 23 07/27/2022 urina lysis , dipst ick urobilinogen neg 0.2 - 8 Not Available [facility] [place] [address] [facility] [address], [place], [address], 07/27/2022 18:17:56 07/27/19 23 07/27/2022 urina lysis , dipst ick nitrite neg neg - pos Not Available [facility] [place] [address] [place] [address] [address], [place], [address], 07/27/2022 18:17:56 07/27/19 23 07/27/2022 urina lysis , dipst ick leukocytes neg neg - 3+ Not Available [facility] [place] [address] [place] [address] [address], [place], [address], 07/27/2022 18:17:56 04/15/20 25 04/18/2025 PAP TEST THIN PREP Pap test thin prep Negati ve for Intrae pithel ial Lesion or Malign remy normal ACCES JONO #: [id number] e: Cervi vale/E ndoce rvica l LMP: 04/01 Date Taken : 04/15 Speci men Type: ThinP rep Vial Date Repor berkley: 04/18 Clini vale Data: Last Pap: nl (10/01) Cytot ech: Ashwin Leonard r, CT( CP) Sonu Ch M.D. elect marvin allaleida autumn d 04/18 at 10:36 AM Speci men Adequ acy: Satis facto ry for evalu ation Endoc ervic al/tr ansfo rmati on zone compo nent prese nt Gener al Categ oriza tion: NEGAT JORDANA FOR INTRA EPITH ELIAL LESIO N OR MALIG WADE Inter preta tion/ Resul t: React jordana cellu lar wang es This speci men has been maura zed by the ThinP rep Imagi ng Syste m, an inter activ e compu ter syste m which kevin ts the lab in the scree dustin of ThinP rep Pap Test slide s. Follo wing imagi ng, the slide was revie wed [...] ----- ---- ----- -- HPV High Risk Scretray n (TMA) ThinP rep Vial The human papil lomav irus (HPV) High Risk Scretray n is an FDA-a pprov ed in-vi tro ampli fied nucle ic acid test for the quali tativ e detec tion of E6/E7 viral mRNA. Resul ts shoul d be corre lated with patie nt prese ntati on, histo ry, cervi vale cytol ogy and other clini vale and labor atory findi ngs. See https ://[employer]/s ites/ defau lt/fi -0 AW- 94595 _002_ 01.pd f for furth er infor matio n. Test perfo rmed by [facility] [employer], [address], [place] [address] , Fadia Martinez ra, , Labor atory Dire tor, CLIA# [id number] HPV High Risk *HPV NOT DETEC BERKLEY (TYPE S 16, 18, 31, 33, 35, [...] and labor atory findi ngs. See https ://[employer]/s ites/ defau lt/fi -0 - 49802 _002_ 01.pd f for furth er infor matio n. Test perfo rmed by [facility], [employer] [facility], [address], [place] [address] , Fadia Martinez ra, DO, Labor atory Dire tor, CLIA# [id number] End of Repor t Techn ical servi pritesh provi ded by [facility], [employer], [employer], [address] [place] [address] Demetris wynne MD, [facility]. Case revie wed and diagn osis rende red at [facility], d/b/a [employer], [address], [place] [address] Sonu Ch MD, [facility] CONFI DENTI AL Not Available [facility] ([facility]) [address], [place], [address], 04/18/2025 13:38:12 04/15/20 25 04/16/2025 HPV HIGH RISK SCREE N (TMA) HPV high risk NOT DETECT ED normal Not Available [facility] ([facility]) [address] [facility] [address], [place], [address], 04/18/2025 13:38:12 04/15/20 25 04/15/2025 MAMMO , scree dustin, tomos ynthe sis, bilat eral No observ ation record ed. [email or web address] [id number] Mammo_southda [facility] [address], [place], [address], 04/16/2025 10:11:20 04/15/2004/15/2025 lay lette r No observ ation record ed. KYAW [id number] t Mammo_southda [facility] [address], [place], [address], 04/19/2025 16:02:29 Result Notes None recorded. Problems Name Problem SNOMED Code Status Onset Date Resolution Date Notes Provider Name and Address Organization Details Recorded Time Acquired hypothyroidism 469195058 Active 2024 Patricia [place], [place] - [facility] 13:42:09 Bipolar I disorder 964683930 Active 2024 Patricia [place], [place] - [facility] 13:42:19 Asthma - currently active 630730413 Active 2024 Patricia Clement [facility], [place] - [facility] 5 13:42:29 Problem Notes None recorded. Procedures Surgical History Date Name Laterality Status Provider Name and Address Organization Details Recorded Time 5 Date of Last Mammogram completed Patricia Clement [place] - [facility] 04/15/2025 13:43:12 2 Date of Last Pap Smear completed Unique Barahoan MD [address] [facility] [address], [place], [address], [facility] 10/08/2021 08:48:49 2 I&D completed Symone Leon DO [address] [facility] [facility] [address], [place], [address], [facility] 09/03/2021 21:22:08 6 Tubal Ligation completed Unique Barahona MD [address] [facility] [address], [place], [address], [facility] 10/01/2021 17:49:52 Elbow arthroscopy completed Unique Barahona MD [address] [facility] [address], [place], [address], [place] [facility] [place] [facility] [place] 07/29/2020 11:44:40 Imaging Results None recorded. Procedure Notes None recorded. Medical Equipment None Reported. Allergies Allergen ID Allergen Name Allergen Category Reaction Reaction Severity Criticality Documentation Date Start Date Code Code System Note Provider Name and Address Organization Details Recorded Time latex environme nt,medica tion Not available Not available Not available 07/29/2020 90568 91 RxNorm Janine Sarah null, [place] [facility] 11:21:42 21604 cat dander environme nt Not available Not available Not available 07/29/2020 Janinemariano Sarah null[place] - [facility] [place] 11:21:42 22867 house dust allergeni c extract environme nt,medica tion Not available Not available Not available 07/29/2020 00963 9 RxNorm Janine Sarah [facility] 11:21:42 Medications Name Sig Start Date Stop [...] and Address Organization Details Last Updated DateTime 07/27/2022 160.02 cm 28.9 kg/m2 39941.99 g 118/56 mm[Hg] OLI ARAIZA(TERM) [facility] 07/27/2022 18:15:02 Date Recorded Body height Body mass index (BMI) Body weight Systolic And Diastolic Provider Name and Address Organization Details Last Updated DateTime 09/03/2021 160.02 cm 28.5 kg/m2 76286.37 g 114/78 mm[Hg] Joleen Randhawa [facility] 09/03/2021 16:22:29 Date Recorded Body height Body mass index (BMI) Body weight Systolic And Diastolic Provider Name and Address Organization Details Last Updated DateTime 10/01/2021 160.02 cm 28.7 kg/m2 81851.68 g 126/81 mm[Hg] Michaela Breaux [facility] 10/01/2021 17:30:55 Date Recorded Body height Body mass index (BMI) Body weight Systolic And Diastolic Provider Name and Address Organization Details Last Updated DateTime 04/15/2025 160.02 cm 26.7 kg/m2 50804.45 g 110/68 mm[Hg] Patricia Clement [facility] 04/15/2025 13:44:56 Social History Question Answer Notes LastModified by Organization Details LastModified Time Tobacco Smoking Status Never Smoker MARIAH looney [facility] [place] [facility] 07/28/2020 10:20:33 Do You Have An Advance Directive? No Information not available 07/27/2022 If You Are , What Was Your Level Of Alcohol Consumption Prior To ? None [email or web address] Information not available 04/15/2025 What Is Your Level Of Caffeine Consumption? Occasional [email or web address] Information not available 04/15/2025 What Type Of Diet Are You Following? REGULAR Not Eating A Lot, Feeling Super Depressed So Plans To See Psych 2020, Depression Improving 2021 With Psychiatrist [email or web address] Information not available 10/01/2021 Which Illicit Or Recreational Drugs Have You Used? Marijuana [email or web address] Information not available 10/01/2021 Have There Been Any Changes To Your Family Or Social Situation? Yes Information not available 07/27/2022 Live Alone Or With Others? With Others Information not available 07/27/2022 Domestic Violence No Information not available 10/01/2021 Marital Status Aprn At [facility] Information not available 07/27/2022 What Was The [...] How Much Tobacco Do You Smoke? No [email or web address] Information not available 07/29/2020 Sex: Female Functional Status Question Answer Note LastModified by Organizat ion Details LastModified Time Do you use any illicit or recreational drugs? Yes Information not available 07/27/2022 Do you or have you ever used any other forms of tobacco or nicotine? No Information not available 07/27/2022 What is your level of alcohol consumption? None Information not available 04/15/2025 Do you or have you ever used smokeless tobacco? Never used smokeless tobacco [email or web address] Information not available 07/29/2020 Are you currently employed? Yes Information not available 07/29/2020 What is your occupation? [employer] in [employer] 2021 Information not available 07/27/2022 Do you or have you ever used e-cigarettes or vape? Never used electronic cigarettes [email or web address] Information not available 07/28/2020 What is your exercise level? Moderate started going to the gym 2020 Information not available 07/27/2022 Mental Status None recorded. Family History Relationship Description Onset Age of this Age Resolved Age Notes LastModified by Organization Details LastModified Time Maternal Grandmother Mental disorder [email or web address] Not available 02/2021 11:21:47 Mother Depressive disorder [email or web address] Not available 02/2021 11:21:47 Mother Mental disorder [email or web address] Not available 02/2021 11:21:47 Mother Hyperthyroid ism Not available 02/2021 11:21:47 Mother Anxiety disorder [email or web address] Not available 02/2021 11:21:47 Mother Asthma Thinks it's her mom but isn't sure lazarus feliz she was adopte d. Not available 07/29/2020 11:26:23 Brother Depressive disorder [email or web address] Not available 02/2021 11:21:47 Brother Mental disorder [email or web address] Not available 02/2021 11:21:47 Brother Anxiety disorder [email or web address] Not available 02/2021 11:21:47 Sister Depressive disorder [email or web address] Not available 02/2021 11:21:47 Sister Mental disorder [email or web address] Not available 02/2021 11:21:47 Sister Anxiety disorder [email or web address] Not available 02/2021 11:21:47 Son Anxiety disorder [email or web address] Not available 2024 13:33:33 Son Depressive disorder [email or web address] Not available 2024 13:33:33 Son Asthma [email or web address] Not available 13:33:33 Notes:adopted Medical History Condition Response Endocrinology- Hyperthyroidism Y Endocrinology- Thyroid Problems Y Psych- Anxiety Disorder Y Psych- Bipolar Disease Y Pulmonary- Asthma Y Gynecological History Statement/Question [...] preservative 0 completed Unique Barahona MD [address], [place], [address], [facility] [place] 07/29/2020 11:39:14 Influenza, split virus, quadrivalent, preservative 8 completed Unique Barahona MD [address], [place], [address], [facility] [place] 07/29/2020 11:39:14 Past Encounters Encounter ID Performer Location Encounter Start Date Encounter Closed Date Diagnosis/Indication Diagnosis SNOMED-CT Code Diagnosis ICD10 Code Diagnosis IMO Codes Diagnosis Note [id number] Unique Barahona MD [address] [address] 04/23/2020 16:19:24 04/23/2020 17:22:28 Dysuria 81447792 R30.9 [id number] Unique Barahona MD [address] [address] 07/29/2020 11:14:56 07/29/2020 11:57:14 Gynecologic examination 09775840 Z01.419 Z11.51 Venereal d isease screening 660221063 Z11.3 [id number] Unique Barahona MD [facility] [address] [place] [address],[address] [address] 02/24/2021 09:36:40 02/24/2021 10:30:10 Galactorrhea not associated with childbirth 40064172 N64.3 [id number] Symone Leon DO [facility] [address] [place] [address],[address] [address] 09/03/2021 16:20:10 09/03/2021 16:49:10 Labial cyst 420621902 N90.7 Call for fever, pain or any sign of infectionM ay encourage continued drainage with warm compress Vaginal discharge 337871 006 N89.8 [id number] Unique Barahona MD [facility] [address] [place] [address] 10/01/2021 17:13:14 10/01/2021 18:00:15 Gynecologic examination 33771584 Z01.419 Z11.51 Venereal d isease screening 221103451 Z11.3 [id number] Unique Barahona MD [facility] [address] [place] [address] 07/27/2022 17:55:29 07/27/2022 18:45:33 Dysuria 61508397 R30.9 Increased frequency of urination 059831656 R35.0 Venereal d isease screening 511135307 Z11.3 [id number] TESFAYE MEDEIROS MD [id number] [place] [address] 04/15/2025 13:27:25 04/15/2025 14:13:06 Screening for malignant neoplasm of cervix 169163512 Z12.4 Human kayla lloma virus screening 454860927 Z11.51 Female gen shelia finding 187991892 Z01.419 [id number] Health Concerns Section Related Observation LastModified by Organization Detai ls LastModified Time None Recorded Concern Status LastModified by Organization Details LastModified Time None Recorded Advance Directives Directive N: Payers Insurance Date Sequence Insurance Name Policy Number Policy Ontiveros Covered Member ID Ontiveros Member ID Guarantor Name 10/08/2021 1 [place] [id number] Nick Romero [id number] Astrid Álvarez 09/23/2021 1 [employer]) [id number] Nick Romero [id number] Astrid Álvarez 04/04/2025 1 [employer] [id number] Nick Romero [id number] Astrid Álvarez 09/11/2021 1 [place] [id number] Nick Romero [id number] Astrid Álvarez 04/26/2025 1 [place] Astrid Álvarez [id number] Astrid Preeti Notes Date Note Type Note Provider Name and Address Organization Details Recorded Time 09/04/19 22 text/htm l Vaginal/Vulvar ProblemReported by PatientHPIFor associated symptoms, patient reportsvaginal itchinganddysuriabut reportsno vaginal irritation,no vaginal pain,no vulvar itching/irritation,no vulvar swelling/erythema,no vulvar pain,no vulvar lesions,no pelvic pain,no dyspareunia,no fever, andno abdominal pain. For location, patient reportsvagina. For duration, patient reportspresent for 1-7 days. For quality, patient reportsirritationandsingle lesion/sore. For context, patient reportssexually active. For alleviating factors, patient reportsnone. For aggravating factors, patient reportsnone. 36 y/o here for a vaginal bump she noticed with some irritation after intercourse a week ago. Symone Leon DO [address], [place], [address], [facility] 09/03/2021 21:28:17 10/02/19 22 text/htm l The patient presents to the office for her annual exam. She also desires a full STD panel today. She denies any symptoms. Unique Barahona MD [address], [place], [address], [facility] 10/01/2021 18:26:02 07/27/19 23 text/htm l Problem visit - STD testing desired today. No symptoms of infection. 10dip negative for evidence of UTI. She reports she is urinating frequently and seems like she cannot make the bathroom. Unique Barahona MD [address], [place], [address], [facility] 07/28/2022 06:59:09 04/15/20 25 text/htm l Annual EXTRACTOR PULLER - McwhcReported by PatientHistoryFor history, patient reportsno gynecologic complaintsandno change in interval history.Genitourinary symptomsFor menstrual cycle, patient reportsnormal menses. For urinary symptoms, patient reportsno hematuria. For vulvar complaints, patient reportsnone. For vaginal complaints, patient reportsnone.Breast symptomsFor breast, patient reportsno breast pain,no breast lump, andno nipple discharge.Endocrine symptomsFor sexual complaints, patient reportsno sexual complaints.Preventative measuresFor preventive measures, patient reportsencourage self breast examination,encourage regular exercise,encourage no tobacco use, andencourage regular mammograms starting age 40.Has appt next week with new PCP.Just got back on insurance. Denies SI/HI. States just depressed because I haven't seen my kids. Feels like she is managing her mental health at this time. States is supportive.ROS as noted in the HPI OPAL JEFFERSON NP [address], [place], [address], [facility] 04/15/2025 14:08:28 OBGyn Episode Ob Episode Information Episode Created Date Number of Fetuses Patient Bloodtype Patient rh Status Prepregnancy Weight lbs Domestic Partner Domestic Partner Phone Father Name Recruiting Administrator Status 07/28/19 21 1 CLOSED Fetus Data First Name Last Name Admitted to NICU Weight (g) Sex Living Outcome Pediatric Complications Fetus ID Race Codes Race Delivery Type Full Term [id number] Vaginal Perry Calculation Initial Perry Date Initial Exam Date Initial Exam Provider Initial Ultrasound Date Last Menstrual Period Date Ultra Sound Weeks Gestation 0 Eighteen To Twenty Week Perry Update Ultra Sound Date Fundal Height At Umbil Quickening Date Ultra Sound Latest Weeks Gestation Final Perry Confirmed By Final Perry Confirmed Date Final Perry Date Ultra Sound Latest Days Gestation 0 0 Menstrual History Last Menstrual Date Menses Monthly On Bcp Conception Prior Menses Frequency Hcg Plus Date Menarche Onset Age Delivery Information Delivery Date Delivery Type Labor Anesthesia Weeks Gestation Incision Type Labor Labor Length Hrs Delivered By Post Complications Tubal Sterilization Discharge Date Comments 6 Discharge Information Feeding Method Contraceptive Method Maternal HG B and HCT Levels
--- OUTSIDE RECORDS SUMMARY | 2025-05-10 12:18 | XMS_ITS | Clinical Summary ---
Author Organization [facility] Address [facility] [place] [address] Care Team Providers Care Cpa Tax Name Role Phone Shayla Irwin NP Primary Care Provider [phone] Allergies No known active allergies Medications oxymetazoline (AFRIN NASAL SPRAY) 0.05 % nasal spray 2 sprays by Nasal route 2 (two) times daily for 5 days. 6 mL 05/07/2025 Active loratadine (CLARITIN) 10 MG tablet Take 1 tablet (10 mg total) by mouth daily. 10 tablet 05/07/2025 Active Encounters Date Type Department Care Team Description 05/07/2025 12:55 PM TUBING MILL OPERATOR - 05/07/2025 3:15 PM TUBING MILL OPERATOR Emergency [facility] Emergency Room [address] [place] [address] Reji Jeffries MD Flu Like Symptoms Discharge Disposition: Home or Self Care (Routine Discharge) 05/07/2025 Travel from Last 3 Months Social History Tobacco Use Types Packs/Day Years Used Date Smoking Tobacco: Never Smokeless Tobacco: Never Tobacco Cessation:Counseling Given: Not Answered Comments Unknown Sex and Gender Information Value Date Recorded Sex Assigned at Female 05/07/2025 1:16 PM TUBING MILL OPERATOR Legal Sex Female 12:39 PM TUBING MILL OPERATOR Gender Identity Not on file Sexual Orientation Not on file Last Filed Vital Signs Vital Sign Reading Time Taken Comments Blood Pressure 144/56 05/07/2025 12:58 PM TUBING MILL OPERATOR Pulse 88 05/07/2025 12:58 PM TUBING MILL OPERATOR Temperature 37.1 C (98.7 F) 05/07/2025 12:58 PM TUBING MILL OPERATOR Respiratory Rate 17 05/07/2025 12:58 PM TUBING MILL OPERATOR Oxygen Saturation 92% 05/07/2025 12:58 PM TUBING MILL OPERATOR Inhaled Oxygen Concentration - - Weight 68 kg (150 lb) 05/07/2025 12:58 PM TUBING MILL OPERATOR Height 160 cm (5' 3) 05/07/2025 12:58 PM TUBING MILL OPERATOR Body Mass Index 26.57 05/07/2025 12:58 PM TUBING MILL OPERATOR Plan of Treatment Health Maintenance Due Date Last Done Comments Cervical Cancer Screening Pa p Smear (Age 30 to 64) Every 3 Years 1983 Annual Physical 1986 Hepatitis C 2001 DTaP, Tdap and Td Vaccines ( 1 - Tdap) 2002 Hepatitis B Vaccines (1 of 3 - 19+ 3-dose series) 2002 HPV Vaccines (1 - 3-dose SCD M series) 2010 Cervical Cancer Screening Pa p with HPV Testing (Age 30 to 64) Every 5 Years 2013 Cervical Cancer Screening with HPV 2013 Mammogram Screening 2023 COVID-19 Vaccine ( - 2024-2 6 season) 2025 Influenza Adult (#1) 2025 Hepatitis A Vaccines Aged Out No long er eligible based on patient's age to complete this topic Meningococcal B Vaccine Aged Out No l onger eligible based on patient's age to complete this topic Meningococcal Vaccine Aged Out No brent melvin eligible based on patient's age to complete this topic Pneumococcal Vaccine: Pediat rics (0 to 5 Years) and At-Risk Patients (6 to 49 Years) Aged Out No longer eligible b ased on patient's age to complete this topic RSV Immunizations Under 20 Months Aged Out No longer eligible based on patient's age to complete this topic Procedures Procedure Name Priority Date/Time Associated Diagnosis Comments STREP A, DNA STAT 05/07/2025 3:06 PM TUBING MILL OPERATOR XR CHEST PA+LAT STAT 05/07/2025 2:29 PM TUBING MILL OPERATOR STREP A, DNA STAT 05/07/2025 2:06 PM TUBING MILL OPERATOR RESPIRATORY PCR PNL LIMITED STAT 05/07/2025 2:06 PM TUBING MILL OPERATOR from Last 3 Months Results * STREP A, DNA (05/07/2025 3:06 PM TUBING MILL OPERATOR) Only the most recent of2 resultswithin the time period is included. SPECIMEN SOURCE THROAT 05/07/2025 3:06 PM TUBING MILL OPERATOR [facility] STREP A MOLECULAR NOT DETECTED NOT DETECTED 05/07/2025 3:35 PM TUBING MILL OPERATOR [facility] SWAB STRUCTURE OF ANTERIOR REGION OF NECK / Unknown 05/07/2025 3:06 PM TUBING MILL OPERATOR Reji Jeffries MD MICROBIOLOGY - GENERAL ORDERABL ES Final Result [facility] [address] [address] [place] [address], * XR CHEST PA+LAT (05/07/2025 2:29 PM TUBING MILL OPERATOR) Anatomical Region Laterality Modality Chest Radiographic Ashleigh ging 05/07/2025 2:52 PM TUBING MILL OPERATOR Impressions 05/07/2025 2:58 PM TUBING MILL OPERATOR IMPRESSION:===== No acute findings. Referred By: Interpreted By: Prashant Tang MD, 05/07/2025 2:52 PM Narrative 05/07/2025 2:58 PM TUBING MILL OPERATOR [facility] [address] [place] [address] EXAMINATION: PA AND LATERAL CHEST Exam date/time: 05/07/2025 2:19 PM Reason For Exam: cough Shortness of breath Comparison: None Technique: 2 views. Findings: Heart size normal. Proximal airways unremarkable. No suspicious pulmonary lesion, pneumothorax, or pleural effusion. ===== Procedure Note Prashant Tang MD - 05/07/2025 [facility] [address] [place] [address] EXAMINATION: PA AND LATERAL CHEST Exam date/time: 05/07/2025 2:19 PM Reason For Exam: cough Shortness of breath Comparison: None Technique: 2 views. Findings: Heart size normal. Proximal airways unremarkable. No suspiciouspulmonary lesion, pneumothorax, or pleural effusion. ===== IMPRESSION:===== No acute findings. Referred By: Interpreted By: Prashant Tang MD, 05/07/2025 2:52 PM us Reji Jeffries MD GENERAL IMAGING Final Result * RESPIRATORY PCR PNL LIMITED (FLU A/FLU B/RSV/COVID) (05/07/2025 2:06 PM TUBING MILL OPERATOR) SPECIMEN SOURCE NASOPHARYNGEAL SWAB 05/07/2025 2:06 PM TUBING MILL OPERATOR [facility] CORONAVIRUS SARS COV 2 PCR (RESP) NEGATIVE NEGATIVE 05/07/2025 2:55 PM TUBING MILL OPERATOR [facility] INFLUENZA A PCR (RESP) NEGATIVE NEGATIVE 05/07/2025 2:55 PM TUBING MILL OPERATOR [facility] INFLUENZA B PCR (RESP) NEGATIVE NEGATIVE 05/07/2025 2:55 PM TUBING MILL OPERATOR [facility] RSV PCR (RESP) NEGATIVE NEGATIVE 05/07/2025 2:55 PM TUBING MILL OPERATOR [facility] SWAB NASOPHARYNGEAL STRUCTURE / Unknown 05/07/2025 2:06 PM TUBING MILL OPERATOR us Reji Jeffries MD MICROBIOLOGY - GENERAL ORDERABL ES Final Result [facility] [address] [place] [address], [place] [phone] from Last 3 Months Insurance [facility] MEDICAID Care Teams Cpa Tax Relationship Specialty Start Date End Date Shayla Irwin NP [address] [place] [phone] PCP - General NURSE PRACTITIONER 05/07/25
== END ==
DX: M54.40 Lumbago with sciatica, unspecified side (principal)
CPT/HCPCS: 72100